=== PATIENT | female | born 1985 | race Two or more races ===

== ENCOUNTER 2020-09-08 18:58 | Emergency (ER) | payer SELFPAY ==
[~2020-09-08] VITALS: Ht 152.4 cm; Wt 81.6 kg
--- NOTE | 2020-09-08 19:28 | NUR ---
MD Arora in room to do MSE.
[2020-09-08 19:43] LABS: *BILIRUBIN,URIN NEGATIVE (NEGATIVE); *BLOOD, URINE NEGATIVE (NEGATIVE); *CLARITY,URINE CLEAR (CLEAR); *COLOR,URINE LIGHT YELLOW (YELLOW); *KETONES,URINE NEGATIVE (NEGATIVE); *URINE HCG, QUAL NEGATIVE (NEGATIVE); *UROBILINOGEN,URINE 0.2 E.U./dl (NORMAL); LEUKOCYTE ESTERASE ,URINE NEGATIVE (NEGATIVE); NITRITE, URINE NEGATIVE (NEGATIVE); PH,URINE 5.5 (5.0-8.0); UGLUCOSE NEGATIVE (NEGATIVE)
[2020-09-08] MEDS ORDERED: IV NORMAL SALINE 1000 ML BAG IV ONE (19:45)
[2020-09-08] MEDS ORDERED: PANTOPRAZOLE SODIUM 40 MG VIAL IV ONE (19:45)
[2020-09-08] MEDS ORDERED: ONDANSETRON 4 MG/2 ML VIAL IV ONE (19:45)
--- NOTE | 2020-09-08 19:46 | NUR ---
instrument technologist in room to take x-ray of patient.
[2020-09-08 20:07] LABS: BASOPHILS % (AUTO) 0.3 % (0.0-2.0); EOSINOPHILS # (AUTO) 0.1 K/uL (0.0-0.7); EOSINOPHILS % (AUTO) 0.7 % (0.0-7.0); HEMATOCRIT 36.9 % (31.2-41.9); HEMOGLOBIN 11.6 g/dL (10.9-14.3); LYMPHOCYTES % (AUTO) 25.4 % (20.5-51.5); MEAN CORPUSCULAR HEMOGLOBIN 23.7 uug (24.7-32.8); MEAN CORPUSCULAR HGB CONC 32 g/dL (32.3-35.6); MEAN CORPUSCULAR VOLUME 75.3 fL (75.5-95.3); MONOCYTES # (AUTO) 1.1 K/uL (2.0-10.0); MONOCYTES % (AUTO) 9.2 % (0.0-11.0); NEUTROPHILS # (AUTO) 7.6 K/uL (1.8-8.9); NEUTROPHILS % (AUTO) 64.4 % (38.5-71.5); PLATELET COUNT (AUTO) 419 K/uL (179-408); WHITE BLOOD COUNT (AUTO) 11.7 K/uL (3.8-11.8)
[2020-09-08] MEDS ORDERED: ONDANSETRON 4 MG/2 ML VIAL ONE (20:10)
[2020-09-08] MEDS ORDERED: PANTOPRAZOLE SODIUM 40 MG VIAL ONE (20:10)
[2020-09-08 20:13] LABS: CREATININE 0.6 mg/dL (0.6-1.3); POTASSIUM 3.7 mmol/L (3.5-5.1)
[2020-09-08 20:18] LABS: BILIRUBIN,DIRECT 0.1 mg/dL (0.0-0.2); BILIRUBIN,TOTAL 0.2 mg/dL (0.2-1.0); TOTAL PROTEIN, SERUM 7.8 g/dL (6.4-8.2)
[2020-09-08] MEDS ORDERED: KETOROLAC TROMETHAMINE 30 MG INJ IVP ONE (21:00)
[2020-09-08] MEDS ORDERED: OMEP40CA13 PO (21:03)
[2020-09-08] MEDS ORDERED: ONDA4TAB11 PO (21:03)
[2020-09-08] MEDS ORDERED: KETOROLAC TROMETHAMINE 30 MG INJ ONE (21:29)
--- NOTE | 2020-09-08 21:34 | NUR ---
Patient discharged to home in stable condition. Written and verbal after care instructions given. Patient verbalizes understanding of instructions. Stressed follow up or return to ER for worsening s/s. IV removed. Catheter intact and site benign. Pressure and 4x4 gauze applied to site. No bleeding noted. Patient ambulated with steady gait.
[2020-09-08 21:35] VITALS: BP 128/79
== END 2020-09-08 21:36 | disposition home or self-care (01) ==
LOC: ER 19:00
DX: A08.4 Viral intestinal infection, unspecified (principal); M54.9 Dorsalgia, unspecified; Z82.49 Family history of ischemic heart disease and other diseases of the circulatory system
CPT/HCPCS: 36415; 71045; 80048; 80076; 81003; 83690; 84703; 85025; 93005; 96361; 96374; 96375; 99285; C9113; J1885; J2405; A4663; J7030

== ENCOUNTER 2021-03-07 19:43 | Emergency (ER) | payer SELFPAY ==
[~2021-03-07] VITALS: Ht 152.4 cm; Wt 93.0 kg
[~2021-03-07 19:43] MED LIST: OMEP40CA21 PO; ONDA4TAB11 PO
--- NOTE | 2021-03-07 19:58 | NUR ---
Dr. Carvalho on bedside for MSE.
[2021-03-07] MEDS ORDERED: LORAZEPAM 2 MG/1 ML VIAL IV ONE (20:15)
[2021-03-07] MEDS ORDERED: IV NORMAL SALINE 1000 ML BAG IV ONE (20:15)
[2021-03-07] MEDS ORDERED: ASPIRIN 325 MG TABLET PO ONE (20:15)
[2021-03-07] MEDS ORDERED: MECLIZINE HCL 25 MG TABLET PO ONE (20:15)
[2021-03-07 20:28] LABS: HEMATOCRIT 36.2 % (31.2-41.9); MEAN CORPUSCULAR VOLUME 73.3 fL (75.5-95.3); PLATELET COUNT (AUTO) 483 K/uL (179-408)
[2021-03-07 20:35] LABS: CARBON DIOXIDE 26 mmol/L (21-32); CHLORIDE 105 mmol/L (98-107); CREATININE 0.8 mg/dL (0.6-1.3); GLUCOSE 126 mg/dL (74-106); POTASSIUM 3.5 mmol/L (3.5-5.1); UREA NITROGEN, BLOOD 10 mg/dL (7-18)
[2021-03-07 20:36] LABS: ETHANOL < 3 MG/DL (0-0)
[2021-03-07 20:42] LABS: ALANINE AMINOTRANSFERASE 41 U/L (14-59); ALKALINE PHOSPHATASE 96 U/L (50-136); ASPARTATE AMINOTRANSFERASE 25 U/L (15-37); BILIRUBIN,DIRECT 0.1 mg/dL (0.0-0.2); BILIRUBIN,TOTAL 0.3 mg/dL (0.2-1.0)
[2021-03-07] MEDS ORDERED: MECLIZINE HCL 25 MG TABLET ONE (20:42)
[2021-03-07] MEDS ORDERED: ASPIRIN 325 MG TABLET ONE (20:42)
[2021-03-07] MEDS ORDERED: LORAZEPAM 2 MG/1 ML VIAL ONE (20:43)
[2021-03-07 20:47] LABS: LYMPHOCYTES % (MANUAL) 21 % (20-40); MONOCYTES % (MANUAL) 10 % (2-10); NEUTROPHILS % (MANUAL) 69 % (42-75)
[2021-03-07 20:48] LABS: THYROID STIMULATING HORMONE 1.274 mIU/mL (0.358-3.740)
--- NOTE | 2021-03-07 20:55 | NUR ---
PT to CT
[2021-03-07 20:59] LABS: *BILIRUBIN,URIN NEGATIVE (NEGATIVE); *BLOOD, URINE NEGATIVE (NEGATIVE); *COLOR,URINE YELLOW (YELLOW); *KETONES,URINE NEGATIVE (NEGATIVE); *UROBILINOGEN,URINE 0.2 E.U./dl (NORMAL); LEUKOCYTE ESTERASE ,URINE TRACE (NEGATIVE); NITRITE, URINE NEGATIVE (NEGATIVE); UGLUCOSE NEGATIVE (NEGATIVE)
[2021-03-07 21:00] LABS: *URINE HCG, QUAL NEGATIVE (NEGATIVE)
[2021-03-07 21:02] LABS: *CLARITY,URINE HAZY (CLEAR); BACTERIA,URINE FEW /HPF (NONE SEEN); RBC,URINE 0-3 /HPF (0-3); SQUAMOUS EPITHELIAL CELL,UR MODERATE /HPF (NONE SEEN)
[2021-03-07 21:06] LABS: *AMPHETAMINE, URINE NEGATIVE (NEGATIVE); *CANNABINOID, URINE POSITIVE (NEGATIVE); *COCCAINE, URINE NEGATIVE (NEGATIVE); *OPIATE, URINE NEGATIVE (NEGATIVE); *PHENCYCLIDINE SCREEN,URINE NEGATIVE (NEGATIVE)
--- NOTE | 2021-03-07 21:10 | NUR ---
Pt back from ct
[2021-03-07] MEDS ORDERED: IV NS 1000 ML 1,000 ML IV ONE (21:45)
--- NOTE | 2021-03-08 00:40 | NUR ---
IV removed. Catheter intact and site benign. Pressure and 4x4 gauze applied to site. No bleeding noted.
--- NOTE | 2021-03-08 00:47 | NUR ---
Patient discharged to home in stable condition. Written and verbal after care instructions given. Patient verbalizes understanding of instructions. Stressed follow up or return to ER for worsening s/s.
[2021-03-08 00:52] VITALS: BP 139/68
== END 2021-03-08 00:52 | disposition home or self-care (01) ==
LOC: ER 19:44
DX: R07.9 Chest pain, unspecified (principal); R00.2 Palpitations; R94.31 Abnormal electrocardiogram [ECG] [EKG]; R51.9 Headache, unspecified
CPT/HCPCS: 36415; 70030-TC; 70450; 71045; 83605; 84443; 84703; 85025; 85730; 87040; 87086; 93005; A4663; G0480; J2060; J7030; J8597